=== PATIENT | male | born 1985 | race Hispanic/Latino ===

== ENCOUNTER 2019-06-24 09:03 | Emergency (ER) | payer SELFPAY ==
[2019-06-24] MEDS ORDERED: Ketorolac Tromethamine 60 MG/2 ML VIAL ONE (09:57)
[2019-06-24] MEDS ORDERED: Cyclobenzaprine 10 MG TAB ONE (09:57)
== END 2019-06-24 10:38 | disposition home or self-care (01) ==
LOC: ERS 09:03
DX: S29.012A Strain of muscle and tendon of back wall of thorax, initial encounter (principal); X50.1XXA Overexertion from prolonged static or awkward postures, initial encounter
CPT/HCPCS: 96372; 99283; J1885